=== PATIENT | male | born 1990 | race Caucasian/White ===

== ENCOUNTER 2016-09-15 19:33 | Emergency (ER) | payer SELFPAY ==
[2016-09-15 19:34] VITALS: BMI 34.4
[2016-09-15 19:42] VITALS: TEMP 98.6
--- NOTE | 2016-09-15 20:43 | EDPRACDOC ---
- General Information Chief Complaint: Thigh Pain Stated Complaint: KNOT IN RIGHT LEG Time Seen by Provider: 09/15/16 20:33 Information Source: Patient Mode of Arrival:: Car Home Medications: Home Medications Cefdinir 300 mg PO BID #20 capsule 06/30/16 Ibuprofen 600 mg PO TID #20 tablet 06/30/16 Pseudoephedrine [Sudafed] 120 mg PO BID #10 days 06/30/16 Ibuprofen 800 mg PO TID PRN #30 tablet 09/15/16 Allergies/Adverse Reactions: Allergies Allergy/AdvReac Type Severity Reaction Status Date / Time codeine Allergy hyperactive Verified 06/30/16 10:06 Penicillins Allergy vomiting Verified 06/30/16 10:06 - History of Present Illness Onset: monday HPI: Pt c/o R thigh and inguinal painful masses x 3-4 days. Denies injury, abd pain, n/v, changes in bowel or bladder, penile discharge, rash. Location: Reports: Extremity Relevent History Of: Reports: None Prior Abscess: Reports: None Pain: Reports: Mild Quality: Reports: Painful Associated Signs & Symptoms: Reports: None ED Past Medical History - History Reviewed Yes Nurses notes reviewed and agree except as marked - Patient Medical History Psychological History: Denies: Depression Surgical History: Reports: Tonsillectomy/Adnoidectomy - Social Medical History Smoking Status: Never smoker ETOH: None Substance Abuse: None EDM Review of Systems - Review of Systems Constitutional: No Symptoms Reported. negative: Fever, Chills, Weakness, Fatigue, Loss of Appetite Respiratory: No Symptoms Reported. negative: Cough, Brassy Cough, Barky Cough, Shortness of Breath, Wheezing, Hemoptysis Cardiovascular: No Symptoms Reported. negative: Chest Pain, Palpitations, Syncope, Edema, Orthopnea, PND, Skin Mottling, Cyanosis Gastrointestinal: No Symptoms Reported. negative: Pain, Constipation, Nausea, Vomiting, Diarrhea, Melena, Formula Intolerance Genitourinary: No Symptoms Reported. negative: Dysuria, Hematuria, Frequency, Discharge, Bleeding, Testicular Pain, Neurological: No Symptoms Reported. negative: Headache, Dizziness, Seizure, Numbness, Weakness, Speech Difficulty, Gait Difficulty Musculoskeletal: No Symptoms Reported. negative: Neck, Chestwall, Ribs, Back, Shoulder, Arm, Elbow, Forearm, Wrist, Hand, Pelvis, Hip, Femur, Knee, Leg, Ankle , Foot Integumentary: No Symptoms Reported. negative: Itching, Rash, Bruising, Wound Allergic/Immunologic: No Symptoms Reported. negative: Hives, Itching Hematologic: Lymphadenopathy Psychiatric: No Symptoms Reported. negative: Anxiety, Depression, Hallucinations, Insomnia, Suicidal - Physical Exam Constitutional: No apparent distress, Alert Oriented to: Time, Person, Place Last recorded Vital Signs: Last Vital Signs Temp 98.6 F 09/15/16 20:14 Pulse 85 09/15/16 20:14 Resp 18 09/15/16 20:14 BP 147/87 09/15/16 20:14 Pulse Ox 98 09/15/16 20:14 Oxygen Pulse Oxygen Saturation 98 O2 Device Room Air Oxygen Flow Rate Fraction of Inspired Oxygen ( FIO2) - HEENT Head: Normal ( normocephalic) Eye Exam: Normal (PERRL, EOMI, Sclera white) Neck: Normal (FROM, trachea at midline) - Respiratory/Cardiovascular Respiratory: Normal - CTA (BBS clear to auscultation without adventitious sounds ) Cardiovascular: Normal (RRR without murmur, gallop or rub) - GI Auscultation: Normal (NABS) Palpation: Normal (Soft,No rebound or guarding, non distended) Tenderness: Non tender - Musculoskeletal Back: Normal (Non-Tender) Extremities: Normal (Normal tone, Pulses 2+ No cyanosis or edema, FROM) - Integumentary Skin: Normal, Warm, Dry Lymphatics: Adenopathy (R inguinal tender adenopathy with out erythema, swelling , wounds.) - Neurologic Memory Impaired: Normal Motor Function: Normal (Normal tone, Pulses 2+ No cyanosis or edema, FROM) Mood Description: Normal Perception: Normal ED Abscess/Mass Exam - Integumentary Skin: Normal, Warm, Dry Mass: Tender Lymphatics: Adenopathy - Differential Diagnosis Other (adenopathy) - Results Lab Results: 09/15/16 21:14 Laboratory Results - last 24 hr 09/15/16 20:50 Urine Color Yellow Urine Clarity Clear Urine pH 6.0 Ur Specific [place] 1.025 Urine Protein Neg Urine Glucose (UA) Neg Urine Ketones Neg Urine Occult Blood 2+ H Urine Nitrite Neg Urine Bilirubin Neg Urine Urobilinogen <2.0 Ur Leukocyte Esterase Neg Urine RBC 5-10 H Urine Mucus Occ Decision Time to Discharge: 21:15 - Departure Disposition: Home Condition: Good Final Diagnosis: Inguinal lymphadenopathy, Hematuria Instructions: Lymphadenopathy (ED), Hematuria (ED) Education/Counseling Given To: Patient, Family Member Education/Counseling Given Regarding: Diagnosis, Treatment, Follow Up Referrals: None,No Provider [Primary Care Provider] - One Week Reggie Messina II, MD [Staff Physician] - One Week Prescriptions: New Ibuprofen 800 mg PO TID PRN #30 tablet PRN Reason: Pain No Action Cefdinir 300 mg PO BID #20 capsule Ibuprofen 600 mg PO TID #20 tablet Pseudoephedrine [Sudafed] 120 mg PO BID #10 days Additional Instructions: Return for worse or different symptoms. Follow up with Personal MD for further evaluation of adenopathy.
[2016-09-15 20:59] LABS: LEUKOCYTES/URINE NEG (NEGATIVE); NITRITE/URINE NEG (NEGATIVE); URINE OCCULT BLOOD 2+ (NEG/TRACE)
[2016-09-15 21:55] VITALS: BP 129/77; PULSE 77
[2016-09-19 18:39] LABS: CHLAMY BY NUCLEIC ACID AMP Negative (Negative)
[2016-09-20 06:37] LABS: GC BY NUCLEIC ACID AMP Negative (Negative)
== END 2016-09-15 21:51 | disposition home or self-care (01) ==
LOC: EDMC 19:33
DX: R59.0 Localized enlarged lymph nodes (principal); R31.9 Hematuria, unspecified
CPT/HCPCS: 81001; 87491; 87591; 99282